=== PATIENT | female | born 1965 | race American Indian/Alaskan Native ===

== ENCOUNTER 2016-10-09 17:26 | Emergency (ER) | payer SELFPAY ==
--- NOTE | 2016-10-09 21:30 | Emergency Department Report ---
ED Back Pain/Injury HPI - General Chief Complaint: Back Pain/Injury Stated Complaint: LT SIDE PAIN Time Seen by Provider: 10/09/16 21:08 Source: patient Limitations: No Limitations - History of Present Illness Initial Comments: This is a 51-year-old female that presents with low back pain that radiates to left hip x5 days. Patient stated she has been walking a lot and helping mother and developed these symptoms during those days. Patient denies any trauma. Denies fall. Patient initiated has chronic lower back pain but never had pain that was radiating to her left hip. Patient stated has been taking OTC Tylenol/ ibuprofen with minimal relief. Patient denies any trauma. Denies dysuria, polyuria, chest pain, shortness of breath, numbness, tingling, stiff neck, headache, blurry vision. Patient denies any allergies. Describes pain as aching with a level of 8/10. Denies past medical history. MD Complaint: back pain -: Gradual, days(s) (5) Similar Symptoms Previously: Yes Place: home Radiation: left leg Severity: mild Severity scale (0 -10): 8 Quality: aching Consistency: constant Improves With: immobilization, supine, other (rest) Worsens With: walking Associated Symptoms: denies other symptoms. denies: confusion, weakness, chest pain, numbness, difficulty walking, cough, difficulty urinating, diaphoresis, incontinence, fever/chills, constipation, headaches, abdominal pain, loss of appetite, malaise, nausea/vomiting, rash, seizure, shortness of breath, syncope - Related Data Home Medications Medication Instructions Recorded Confirmed Last Taken Amitriptyline 1 tab PO PRN PRN 03/10/15 03/18/15 03/14/15 Atenolol/Chlorthalidone 100 mg PO DAILY 03/10/15 03/18/15 03/18/15 Cyclobenzaprine HCl 1 tab PO PRN PRN 03/10/15 03/18/15 03/14/15 Docusate Sodium 1 cap PO DAILY 03/10/15 03/18/15 03/14/15 Ferrous Sulfate 1 tab PO DAILY 03/10/15 03/18/15 03/14/15 Fluticasone (Nf) 1 spray INNOSTRIL PRN PRN 03/10/15 03/18/15 03/15/15 Ibuprofen 800 mg PO PRN PRN 03/10/15 03/18/15 03/11/15 NIFEdipine 60 mg PO DAILY 03/10/15 03/18/15 03/18/15 Ranitidine HCl 150 mg PO BID 03/10/15 03/18/15 03/14/15 Simvastatin 20 mg PO DAILY 03/10/15 03/18/15 03/17/15 traMADol 50 mg PO PRN PRN 03/10/15 03/18/15 03/04/15 Klor-Con 10 10 meq PO BID 03/11/15 03/18/15 03/14/15 Previous Rx's Medication Instructions Recorded Last Taken Type Ibuprofen [Motrin 600 MG tab] 600 mg PO Q8H PRN #20 tablet 10/09/16 Unknown Rx predniSONE [Deltasone] 20 mg PO BID #10 tab 10/09/16 Unknown Rx Allergies Allergy/AdvReac Type Severity Reaction Status Date / Time No Known Allergies Allergy Unverified 12/27/13 13:24 ED Review of Systems ROS: Stated complaint: LT SIDE PAIN Other details as noted in HPI Constitutional: denies: chills, fever Eyes: denies: eye pain, eye discharge, vision change ENT: denies: ear pain, throat pain Respiratory: denies: cough, shortness of breath, wheezing Cardiovascular: denies: chest pain, palpitations Endocrine: no symptoms reported Gastrointestinal: denies: abdominal pain, nausea, diarrhea Genitourinary: denies: urgency, dysuria, discharge Musculoskeletal: denies: back pain, joint swelling, arthralgia Skin: denies: rash, lesions Neurological: denies: headache, weakness, paresthesias Psychiatric: denies: anxiety, depression Hematological/Lymphatic: denies: easy bleeding, easy bruising ED Past Medical Hx - Past Medical History Previous Medical History?: Yes Hx Hypertension: Yes Hx GERD: Yes Hx Asthma: No Hx COPD: No Hx HIV: No Additional medical history: high cholesterol, heel spur, - Surgical History Past Surgical History?: Yes Additional Surgical History: foot repair, ectopic preg - Social History Smoking Status: Never Smoker Substance Use Type: Alcohol, Prescribed - Medications Home Medications: Home Medications Medication Instructions Recorded Confirmed Last Taken Type Amitriptyline 1 tab PO PRN PRN 03/10/15 03/18/15 03/14/15 History Atenolol/Chlorthalidone 100 mg PO DAILY 03/10/15 03/18/15 03/18/15 History Cyclobenzaprine HCl 1 tab PO PRN PRN 03/10/15 03/18/15 03/14/15 History Docusate Sodium 1 cap PO DAILY 03/10/15 03/18/15 03/14/15 History Ferrous Sulfate 1 tab PO DAILY 03/10/15 03/18/15 03/14/15 History Fluticasone (Nf) 1 spray INNOSTRIL PRN PRN 03/10/15 03/18/15 03/15/15 History Ibuprofen 800 mg PO PRN PRN 03/10/15 03/18/15 03/11/15 History NIFEdipine 60 mg PO DAILY 03/10/15 03/18/15 03/18/15 History Ranitidine HCl 150 mg PO BID 03/10/15 03/18/15 03/14/15 History Simvastatin 20 mg PO DAILY 03/10/15 03/18/15 03/17/15 History traMADol 50 mg PO PRN PRN 03/10/15 03/18/15 03/04/15 History Klor-Con 10 10 meq PO BID 03/11/15 03/18/15 03/14/15 History Ibuprofen [Motrin 600 MG tab] 600 mg PO Q8H PRN #20 tablet 10/09/16 Unknown Rx predniSONE [Deltasone] 20 mg PO BID #10 tab 10/09/16 Unknown Rx ED Physical Exam - General Limitations: No Limitations General appearance: alert, in no apparent distress - Head Head exam: Present: atraumatic, normocephalic, normal inspection - Eye Eye exam: Present: normal appearance, PERRL, EOMI. Absent: scleral icterus, conjunctival injection, nystagmus, periorbital swelling, periorbital tenderness Pupils: Present: normal accommodation - ENT ENT exam: Present: normal exam, normal orophraynx, mucous membranes moist, TM's normal bilaterally, normal external ear exam - Neck Neck exam: Present: normal inspection, full ROM. Absent: tenderness, meningismus, lymphadenopathy, thyromegaly - Respiratory Respiratory exam: Present: normal lung sounds bilaterally. Absent: respiratory distress, wheezes, rales, stridor, chest wall tenderness, accessory muscle use, decreased breath sounds, prolonged expiratory - Cardiovascular Cardiovascular Exam: Present: regular rate, normal rhythm, normal heart sounds. Absent: bradycardia, tachycardia, irregular rhythm, systolic murmur, diastolic murmur, rubs, gallop - GI/Abdominal GI/Abdominal exam: Present: soft, normal bowel sounds. Absent: distended, tenderness, guarding, rebound, rigid, diminished bowel sounds - Rectal Rectal exam: Present: deferred - Extremities Exam Extremities exam: Present: normal inspection, full ROM, normal capillary refill. Absent: tenderness, pedal edema, joint swelling, calf tenderness - Expanded Lower Extremity Exam Left Hip exam: Present: normal inspection, full ROM, pelvic stability. Absent: tenderness, swelling, abrasion, laceration, ecchymosis, deformity, crepidus, dislocation, erythema, external rotation, internal rotation, shortening Upper Leg exam: Present: normal inspection, full ROM. Absent: tenderness, swelling, abrasion, laceration, ecchymosis, deformity, crepidus, dislocation, erythema Knee exam: Present: normal inspection, full ROM, full knee extension. Absent: tenderness, swelling, abrasion, laceration, ecchymosis, deformity, crepidus, dislocation, erythema, effusion, pain w/ pronation/supination, posterior draw sign, pain/laxity with valgus, pain/laxity with varus Lower Leg exam: Present: normal inspection, full ROM. Absent: tenderness, swelling, abrasion, laceration, ecchymosis, deformity, crepidus, dislocation, erythema, palpable cord, Tank's sign Ankle exam: Present: normal inspection, full ROM. Absent: tenderness, swelling , abrasion, laceration, ecchymosis, deformity, crepidus, dislocation, erythema, anterior draw sign Foot/Toe exam: Present: normal inspection, full ROM. Absent: tenderness, swelling, abrasion, laceration, ecchymosis, deformity, crepidus, dislocation, erythema, amputation, puncture wound, foreign body, calcaneal tenderness, tenderness at base of 5th metatarsal, nail avulsion, subungual hematoma Neuro vascular tendon exam: Present: no vascular compromise. Absent: pulse deficit, abnormal cap refill, motor deficit, sensory deficit, tendon deficit, extremity cold to touch, pallor, abnormal 2-point discrimination, decreased fine /light touch, foot drop, peroneal nerve deficit, significant pain with passive ROM of distal joint Gait: Positive: observed and normal - Back Exam Back exam: Present: normal inspection, full ROM, tenderness, paraspinal tenderness (lumbar region), vertebral tenderness (lumbar spinal tenderness). Absent: CVA tenderness (R), CVA tenderness (L), muscle spasm, rash noted - Neurological Exam Neurological exam: Present: alert, oriented X3, CN II-XII intact, normal gait, reflexes normal - Psychiatric Psychiatric exam: Present: normal affect, normal mood - Skin Skin exam: Present: warm, dry, intact, normal color. Absent: rash ED Course Vital Signs 10/09/16 17:46 Temperature 98.5 F Pulse Rate 93 H Respiratory 20 Rate Blood Pressure 144/85 O2 Sat by Pulse 97 Oximetry - Reevaluation(s) Reevaluation #1: 10/09/16 21:32 Patient speaking in full sentences but no signs of distress noted. ED Medical Decision Making - Medical Decision Making ED course; this is a 51-year-old female that presents with low back strain 1- patient was examined by myself. X-ray has been obtained. Negative findings of fracture. Dictated by radiologist. Patient was instructed of x-ray findings were no further questions nor by the patient. 2- patient received Solu-Medrol 40 mg in the ED IM as well as prednisone and ibuprofen, discharged. 3- patient was instructed to follow-up with your primary care doctor in 3-5 days or if symptoms worsen such as bladder or bowel stability, chest pain, short of breath, numbness or tingling sensation in extremities, headache, dizziness, visual changes, nausea vomiting, or abdominal pain, return back to emergency room as was possible. 4- at time time of discharge, the patient does not seem toxic or ill in appearance. No acute signs of distress noted. Patient agrees to discharge treatment plan of care. No further questions noted by the patient. Critical care attestation.: If time is entered above; I have spent that time in minutes in the direct care of this critically ill patient, excluding procedure time. ED Disposition Clinical Impression: Low back strain Qualifiers: Encounter type: initial encounter Qualified Code(s): S39.012A - Strain of muscle, fascia and tendon of lower back, initial encounter Disposition: - TO HOME OR SELFCARE Is pt being admited?: No Does the pt Need Aspirin: No Condition: Stable Instructions: Ibuprofen (By mouth), Prednisone (By mouth), Low Back Strain (ED) Additional Instructions: follow-up with your primary care doctor in 3-5 days or if symptoms worsen such as bladder or bowel stability, chest pain, short of breath, numbness or tingling sensation in extremities, headache, dizziness, visual changes, nausea vomiting, or abdominal pain, return back to emergency room as was possible. Take full course of prednisone as prescribed. Prescriptions: Ibuprofen [Motrin 600 MG tab] 600 mg PO Q8H PRN #20 tablet PRN Reason: Pain predniSONE [Deltasone] 20 mg PO BID #10 tab Referrals: PRIMARY CAREMD [Primary Care Provider] - 3-5 Days LILY LUCIANO JR, MD [Staff Physician] - 3-5 Days [facility] [Outside] - 3-5 Days [facility] [Outside] - 3-5 Days Forms: Work/School Release Form(ED)
--- NOTE | 2016-10-09 22:11 | XRay Report ---
FINAL REPORT PROCEDURE: XR HIP 2-3V LT TECHNIQUE: LEFT hip radiographs, 2 views each, including AP view of the pelvis. HISTORY: LT HIP pain COMPARISON: No prior studies are available for comparison. FINDINGS: No fracture or dislocation is seen. Hip joint spaces are symmetric and unremarkable in appearance. Sacroiliac joints are unremarkable. No focal osseous lesion is seen. IMPRESSION: No acute abnormality is identified
--- NOTE | 2016-10-09 22:16 | XRay Report ---
FINAL REPORT PROCEDURE: XR SPINE LUMBOSACRAL 2-3V TECHNIQUE: Lumbar spine radiographs, including AP, lateral, and lumbosacral spot views. CPT 37435 HISTORY: spinal tenderness/LOWER BACK PAIN COMPARISON: No prior studies are available for comparison. FINDINGS: No scoliosis. There are degenerative disc changes at L3-4 and L4-5, with mild disc space narrowing and osteophyte formation. There is straightening of the usual lumbar lordosis. Vertebral body heights and alignment are maintained. IMPRESSION: Degenerative disc changes at L3-4 and L4-5. No acute osseous abnormality is seen.
[2016-10-09 23:27] VITALS: BP 185/96
== END 2016-10-09 23:26 | disposition home or self-care (01) ==
LOC: ED 17:26
DX: S39.012A Strain of muscle, fascia and tendon of lower back, initial encounter (principal); I10 Essential (primary) hypertension; K21.9 Gastro-esophageal reflux disease without esophagitis; E78.00 Pure hypercholesterolemia, unspecified; X58.XXXA Exposure to other specified factors, initial encounter; Y93.89 Activity, other specified; Y99.8 Other external cause status; Y92.098 Other place in other non-institutional residence as the place of occurrence of the external cause
CPT/HCPCS: 72100; 73502; 96372; 99283; J2920

== ENCOUNTER 2018-05-01 06:12 | Emergency (ER) | payer MEDICAID ==
[2018-05-01 06:24] VITALS: BP 184/106
[2018-05-01] MEDS ORDERED: TORADOL IM ONE (07:25)
[2018-05-01] MEDS ORDERED: DELTASONE PO ONE (07:25)
--- NOTE | 2018-05-01 07:52 | Emergency Department Report ---
ED Back Pain/Injury HPI - General Chief Complaint: Extremity Injury, Lower Stated Complaint: LOWER BACK, HIP, THIGH AND RIGHT SIDE PAIN Time Seen by Provider: 05/01/18 07:11 Source: patient Limitations: No Limitations - History of Present Illness Initial Comments: This is a 53-year-old female nontoxic, well nourished in appearance, no acute signs of distress presents to the ED with c/o of acute on chronic lower back pain. Patient stated that the past week she was moving and developed this pain. Patient states has history of sciatica nerve pain which is similar symptoms as today. Patient states that pain radiates through to his right lower extremity. Patient denies any trauma. Denies any bladder or bowel instability. Patient denies any urinary symptoms. Denies any fever, chills, nausea, vomiting, headache, stiff neck, chest pain or shortness of breath. Patient denies any numbness or tingling. Denies any allergies. MD Complaint: back pain -: week(s) Similar Symptoms Previously: Yes Place: home Radiation: right leg Severity: mild Severity scale (0 -10): 8 Quality: aching Consistency: intermittent Improves With: immobilization, sitting upright Worsens With: movement, walking Context: while lifting, turning/twisting Associated Symptoms: denies other symptoms. denies: confusion, weakness, chest pain, numbness, difficulty walking, cough, difficulty urinating, diaphoresis, incontinence, fever/chills, constipation, headaches, abdominal pain, loss of appetite, malaise, nausea/vomiting, rash, seizure, shortness of breath, syncope - Related Data Home Medications Medication Instructions Recorded Confirmed Last Taken Amitriptyline 1 tab PO PRN PRN 03/10/15 03/18/15 03/14/15 Atenolol/Chlorthalidone 100 mg PO DAILY 03/10/15 03/18/15 03/18/15 Cyclobenzaprine HCl 1 tab PO PRN PRN 03/10/15 03/18/15 03/14/15 Docusate Sodium 1 cap PO DAILY 03/10/15 03/18/15 03/14/15 Ferrous Sulfate 1 tab PO DAILY 03/10/15 03/18/15 03/14/15 Fluticasone (Nf) 1 spray INNOSTRIL PRN PRN 03/10/15 03/18/15 03/15/15 Ibuprofen 800 mg PO PRN PRN 03/10/15 03/18/15 03/11/15 NIFEdipine 60 mg PO DAILY 03/10/15 03/18/15 03/18/15 Ranitidine HCl 150 mg PO BID 03/10/15 03/18/15 03/14/15 Simvastatin 20 mg PO DAILY 03/10/15 03/18/15 03/17/15 traMADol 50 mg PO PRN PRN 03/10/15 03/18/15 03/04/15 Klor-Con 10 10 meq PO BID 03/11/15 03/18/15 03/14/15 Previous Rx's Medication Instructions Recorded Last Taken Type Ibuprofen [Motrin 600 MG tab] 600 mg PO Q8H PRN #20 tablet 10/09/16 Unknown Rx predniSONE [Deltasone] 20 mg PO BID #10 tab 10/09/16 Unknown Rx Cyclobenzaprine [Flexeril] 10 mg PO QHS PRN #10 tablet 05/01/18 Unknown Rx Ibuprofen [Motrin] 600 mg PO Q8H PRN #20 tablet 05/01/18 Unknown Rx Allergies Allergy/AdvReac Type Severity Reaction Status Date / Time No Known Allergies Allergy Unverified 12/27/13 13:24 ED Review of Systems ROS: Stated complaint: LOWER BACK, HIP, THIGH AND RIGHT SIDE PAIN Other details as noted in HPI Constitutional: denies: chills, fever Eyes: denies: eye pain, eye discharge, vision change ENT: denies: ear pain, throat pain Respiratory: denies: cough, shortness of breath, wheezing Cardiovascular: denies: chest pain, palpitations Endocrine: no symptoms reported Gastrointestinal: denies: abdominal pain, nausea, diarrhea Genitourinary: denies: urgency, dysuria, discharge Musculoskeletal: back pain. denies: joint swelling, arthralgia Skin: denies: rash, lesions Neurological: denies: headache, weakness, paresthesias Psychiatric: denies: anxiety, depression Hematological/Lymphatic: denies: easy bleeding, easy bruising ED Past Medical Hx - Past Medical History Previous Medical History?: Yes Hx Hypertension: Yes Hx GERD: Yes Hx Asthma: No Hx COPD: No Hx HIV: No Additional medical history: high cholesterol, heel spur, e-sure - Surgical History Past Surgical History?: Yes Additional Surgical History: foot repair, ectopic preg - Social History Smoking Status: Never Smoker Substance Use Type: None - Medications Home Medications: Home Medications Medication Instructions Recorded Confirmed Last Taken Type Amitriptyline 1 tab PO PRN PRN 03/10/15 03/18/15 03/14/15 History Atenolol/Chlorthalidone 100 mg PO DAILY 03/10/15 03/18/15 03/18/15 History Cyclobenzaprine HCl 1 tab PO PRN PRN 03/10/15 03/18/15 03/14/15 History Docusate Sodium 1 cap PO DAILY 03/10/15 03/18/15 03/14/15 History Ferrous Sulfate 1 tab PO DAILY 03/10/15 03/18/15 03/14/15 History Fluticasone (Nf) 1 spray INNOSTRIL PRN PRN 03/10/15 03/18/15 03/15/15 History Ibuprofen 800 mg PO PRN PRN 03/10/15 03/18/15 03/11/15 History NIFEdipine 60 mg PO DAILY 03/10/15 03/18/15 03/18/15 History Ranitidine HCl 150 mg PO BID 03/10/15 03/18/15 03/14/15 History Simvastatin 20 mg PO DAILY 03/10/15 03/18/15 03/17/15 History traMADol 50 mg PO PRN PRN 03/10/15 03/18/15 03/04/15 History Klor-Con 10 10 meq PO BID 03/11/15 03/18/15 03/14/15 History Ibuprofen [Motrin 600 MG tab] 600 mg PO Q8H PRN #20 tablet 10/09/16 Unknown Rx predniSONE [Deltasone] 20 mg PO BID #10 tab 10/09/16 Unknown Rx Cyclobenzaprine [Flexeril] 10 mg PO QHS PRN #10 tablet 05/01/18 Unknown Rx Ibuprofen [Motrin] 600 mg PO Q8H PRN #20 tablet 05/01/18 Unknown Rx ED Physical Exam - General Limitations: No Limitations General appearance: alert, in no apparent distress - Head Head exam: Present: atraumatic, normocephalic - Eye Eye exam: Present: normal appearance - Neck Neck exam: Present: normal inspection, full ROM - Extremities Exam Extremities exam: Present: normal inspection, full ROM, normal capillary refill. Absent: tenderness, joint swelling, calf tenderness - Back Exam Back exam: Present: normal inspection, full ROM, paraspinal tenderness (lumbar paraspinal). Absent: tenderness, CVA tenderness (R), CVA tenderness (L), muscle spasm, vertebral tenderness, rash noted - Expanded Back Exam Expanded Back exam: Absent: saddle anesthesia Back exam: Negative Straight Leg Raising: Left, Right - Neurological Exam Neurological exam: Present: alert, oriented X3 - Psychiatric Psychiatric exam: Present: normal affect, normal mood - Skin Skin exam: Present: warm, dry, intact, normal color. Absent: rash ED Course Vital Signs 05/01/18 05/01/18 06:19 07:37 Temperature 98.1 F Pulse Rate 85 Respiratory 18 18 Rate Blood Pressure 184/106 O2 Sat by Pulse 99 Oximetry - Reevaluation(s) Reevaluation #1: 05/01/18 07:50 Patient is speaking in full sentences with no signs of distress noted. ED Medical Decision Making - Medical Decision Making This is a 53-year-old female that presents with low back strain. Patient is stable was examined by me. There is no spinal tenderness. There is no cauda equina syndrome during examination. No bladder or bowel instability. Patient received Toradol 60 mg IM and prednisone in the ED which stated her symptoms has resolved and subsided. Patient is discharged with muscle relaxant and Motrin. Patient was instructed not to operate any machinery while taking muscle relaxant as they cause her drowsiness. Patient was referred to Follow-up with a primary care doctor in 3-5 days or if symptoms worsen and continue return to emergency room as soon as possible. At time of discharge, the patient does not seem toxic or ill in appearance. No acute signs of distress noted. Patient agrees to discharge treatment plan of care. No further questions noted by the patient. This chart is dictated with using [employer] Critical care attestation.: If time is entered above; I have spent that time in minutes in the direct care of this critically ill patient, excluding procedure time. ED Disposition Clinical Impression: Low back strain Qualifiers: Encounter type: initial encounter Qualified Code(s): S39.012A - Strain of muscle, fascia and tendon of lower back, initial encounter Disposition: TO HOME OR SELFCARE Is pt being admited?: No Does the pt Need Aspirin: No Condition: Stable Instructions: Low Back Strain (ED), Cyclobenzaprine (By mouth) Additional Instructions: Follow-up with your primary care doctor in 3-5 days or if symptoms worsen such as bladder or bowel stability, chest pain, short of breath, numbness or tingling sensation in extremities, headache, dizziness, visual changes, nausea vomiting, or abdominal pain, return back to emergency room as was possible. Take ibuprofen and Flexeril as prescribed. Do not operate heavy machinery while taking Flexeril due to sedation Prescriptions: Cyclobenzaprine [Flexeril] 10 mg PO QHS PRN #10 tablet PRN Reason: Muscle Spasm Ibuprofen [Motrin] 600 mg PO Q8H PRN #20 tablet PRN Reason: Pain Referrals: PRIMARY CARE, [Referring] - 3-5 Days BIANCA ROCK MD [Staff Physician] - 3-5 Days [facility] [Outside] - 3-5 Days [facility] [Outside] - 3-5 Days Forms: Work/School Release Form(ED)
== END 2018-05-01 08:16 | disposition home or self-care (01) ==
LOC: ED 06:12
DX: S39.012A Strain of muscle, fascia and tendon of lower back, initial encounter (principal); I10 Essential (primary) hypertension; K21.9 Gastro-esophageal reflux disease without esophagitis; E78.00 Pure hypercholesterolemia, unspecified; X50.0XXA Overexertion from strenuous movement or load, initial encounter; Y93.89 Activity, other specified; Y92.098 Other place in other non-institutional residence as the place of occurrence of the external cause; Y99.8 Other external cause status
CPT/HCPCS: 96372; 99282; J1885; J7512

== ENCOUNTER 2018-06-11 09:23 | Outpatient (CLI) | payer MEDICAID ==
--- NOTE | 2018-06-11 09:54 | Mammography Report ---
BILATERAL MAMMOGRAM: FINDINGS: There are scattered fibroglandular densities (approximately 25%-50% glandular). No mass, distortion, suspicious calcification, or skin change is seen. There are no significant changes when compared to prior examination of November 2014. CAD was utilized. IMPRESSION: Negative mammogram. There is no mammographic evidence of malignancy. RECOMMENDATION: Follow-up per ACS guidelines. BI-RADS CATEGORY: 1 = Negative ACR BI-RADS MAMMOGRAPHIC CODES: 0 = Needs additional imaging evaluation; 1 = Negative; 2 = Benign; 3 = Probably benign; 4 = Suspicious; 5 = Malignant; 6 = Known biopsy-proven malignancy COMMENT: 1. Dense breast tissue, i.e., adenosis, fibrocystic changes, etc., may obscure an underlying neoplasm. 2. Approximately 10% of cancers are not detected with mammography. 3. A negative mammography report should not delay biopsy if a clinically suspicious mass is present. COMMENT: Patient follow-up letters are generated in [employer].
== END 2018-06-11 09:24 | disposition home or self-care (01) ==
LOC: MAMMO 09:23
PROVIDERS: ATTEND Internal Medicine
DX: Z12.31 Encounter for screening mammogram for malignant neoplasm of breast (principal); E78.00 Pure hypercholesterolemia, unspecified; I10 Essential (primary) hypertension; K21.9 Gastro-esophageal reflux disease without esophagitis
CPT/HCPCS: 77067